=== PATIENT | male | born 1975 | race Caucasian/White ===

== ENCOUNTER 2017-02-25 20:28 | Emergency (ER) | payer MEDICAID ==
[2017-02-25] MEDS ORDERED: Ketorolac INJ* 30 MG/ML 1 ML VIAL IV PUSH ONE (20:49)
[2017-02-25] MEDS ORDERED: Ketorolac INJ* 30 MG/ML 1 ML VIAL ONE (20:50)
[2017-02-25] MEDS ORDERED: Ketorolac INJ* 60 MG/2 ML VIAL IM ONE (20:50)
--- NOTE | 2017-02-25 21:26 | ED ---
I, Oh,Luz Marina, scribed for Radhames Jacques MD on 02/25/17 at 2054 . Back Pain - HPI Summary HPI Summary: This 41 y/o male presents to ED for new onset of low back pain after falling off 6 feet pallet and landing on his back 3-4 days ago. Pain is located at LLE posterior hip and radiates down to LLE. Pt did not take any pain medication to control his back pain. PMHx includes chronic back pain with history of spinal fusion at age 16. Pt reports at triage that he is homeless at [place] and have recently joined [employer]. - History of Current Complaint Chief Complaint: EDBackInjuryPain Stated Complaint: BACK PAIN Time Seen by Provider: 02/25/17 20:45 Hx Obtained From: Patient Onset/Duration: Sudden Onset Onset/Duration: Started Days Ago, Traumatic, Still Present Back Pain Location: Is Discrete @ - LLE hip, Radiates To - down to LLE leg Pain Intensity: 8 Pain Scale Used: 0-10 Numeric Character: Spasmodic Aggravating Symptom(s): Movement Alleviating Symptom(s): Rest Associated Signs And Symptoms: Positive: Negative. Negative: Bladder Incontinence, Bowel Incontinence - Allergies/Home Medications Allergies/Adverse Reactions: Allergies Allergy/AdvReac Type Severity Reaction Status Date / Time No Known Allergies Allergy Verified 02/25/17 21:07 PMH/Surg Hx/FS Hx/Imm Hx Musculoskeletal History: Reports: Hx Back Problems Infectious Disease History: No Infectious Disease History: Denies: Traveled Outside the [place] in Last 30 Days - Family History Known Family History: Positive: Diabetes - positive to mother - Social History Occupation: Unemployed Hx Substance Use: No Substance Use Type: Reports: None Hx Tobacco Use: No Smoking Status (MU): Never Smoked Tobacco Review of Systems Negative: Fever Negative: incontinence Positive: Other - back pain All Other Systems Reviewed And Are Negative: Yes Physical Exam Triage Information Reviewed: Yes Vital Signs On Initial Exam: Initial Vitals Temp Pulse Resp BP Pulse Ox 98.7 F 84 18 134/97 99 02/25/17 20:36 02/25/17 20:36 02/25/17 20:36 02/25/17 20:36 02/25/17 20:36 Vital Signs Reviewed: Yes Appearance: Positive: Well-Appearing, Pain Distress - mild discomfort Skin: Positive: Warm Head/Face: Positive: Normal Head/Face Inspection Eyes: Positive: BRADLEY ENT: Positive: Hearing grossly normal Neck: Positive: Supple Respiratory/Lung Sounds: Positive: Clear to Auscultation, Breath Sounds Present Cardiovascular: Positive: RRR Abdomen Description: Positive: Nontender, Soft Bowel Sounds: Positive: Present Musculoskeletal: Positive: Other - mild lower paralumbar spasm, no spinal tenderness, no slr pain Neurological: Positive: Sensory/Motor Intact, Alert, Oriented to Person Place, Time Psychiatric: Positive: Affect/Mood Appropriate Diagnostics - Vital Signs Vital Signs Temp Pulse Resp BP Pulse Ox 02/25/17 20:36 98.7 F 84 18 134/97 99 - Laboratory Lab Statement: Any lab studies that have been ordered have been reviewed, and results considered in the medical decision making process. - Radiology L-spine Xray Interpretation: No Acute Changes - Degenerative and likely postoperative changes without radiographically apparent fracture or dislocation. Radiology Interpretation Completed By: Radiologist Re-Evaluation - Re-Evaluation First Eval Change: Improved - much less pain Back Pain Course/Dx - Diagnoses Provider Diagnoses: Back pain Discharge - Discharge Plan Condition: Stable Disposition: HOME Prescriptions: Cyclobenzaprine TAB* [Flexeril 10 MG TAB*] 10 mg PO TID #20 tab Ibuprofen TAB* [Motrin TAB* 600 MG] 600 mg PO Q6H #30 tab Patient Education Materials: Back Pain (ED), Cyclobenzaprine (By mouth), Ibuprofen (By mouth) Referrals: [facility] [place]Outside] - 2 Days The documentation as recorded by the Juan madison Soohyun accurately reflects the service I personally performed and the decisions made by me, Radhames Jacques MD.
--- NOTE | 2017-02-25 21:35 | RAD ---
INDICATION: Back pain COMPARISON: None. TECHNIQUE: 5 views of the lumbar spine were obtained. FINDINGS: Degenerative change of the lumbar spine includes loss of intervertebral disc height and anterior marginal osteophyte formation at L1-L4. There is bony proliferation overlying the facet joints. There is no significant spondylolisthesis. On the AP view there is bony material overlying the lateral aspect of the L5/S1 vertebral bodies which may correlate to the reported history of "low back fusion". . IMPRESSION: Degenerative and likely postoperative changes without radiographically apparent fracture or dislocation.
[2017-02-25] MEDS ORDERED: Cyclobenzaprine TAB* 10 MG PO ONE (22:03)
[2017-02-25 22:14] VITALS: BP 131/85
== END 2017-02-25 22:16 | disposition home or self-care (01) ==
LOC: ED 20:28
DX: M54.9 Dorsalgia, unspecified (principal)
CPT/HCPCS: 72110; 96372; 99282; A9270-GY; J1885